=== PATIENT | male | born 1955 | race Caucasian/White ===

== ENCOUNTER 2020-03-19 12:26 | Inpatient (IN) ==
[2020-03-19] MEDS ORDERED: HYDROmorphone 2 MG/1 ML VIAL IV STA (12:55)
[2020-03-19] MEDS ORDERED: ONDANSETRON 4 MG/2 ML VIAL IV STA (12:55)
[2020-03-19 13:50] LABS: Basophils % 0.3 % (0.0-0.8); Eosinophils # 0.1 10*3/uL (0.0-0.87); Eosinophils % 1.3 % (0.00-10.9); Hematocrit 44.2 VOL% (42.0-52.0); Hemoglobin 14.9 GM/DL (14.0-18.0); Immature Granulocytes Absolute 0.09 #; Lymphocytes # 0.8 10*3/uL (1.4-4.0); Lymphocytes % 8.8 % (21.2-54.2); Mean Corpuscular HGB Conc 33.7 GM/DL (32-36); Mean Corpuscular Volume 94.4 FL (87-102); Mean Platelet Volume 10.7 FL (9.6-12.0); Monocytes % 6.3 % (1.7-12.7); Neutrophils % 82.3 % (38.7-73.9); Platelet Count 169 T/CUMM (130-400); Red Blood Count 4.68 MC/CUMM (3.8-5.5); Red Cell Distribution Width 13.3 % (9.3-17.3); White Blood Count 9.4 T/CUMM (4-12)
[2020-03-19 14:01] LABS: INR 2.2; Partial Thromboplastin Time 31.9 SECS (23.9-33.8)
[2020-03-19 14:08] LABS: PT Patient Result 22.4 SECS (9.8-11.9)
[2020-03-19 14:13] LABS: Calcium 9.8 MG/DL (8.5-10.1); Osmolality,Calculated 280.4 MOS/KG (273-304)
[2020-03-19] MEDS ORDERED: ACETAMINOPHEN 325 MG TABLET PO PRN (14:22)
[2020-03-19] MEDS ORDERED: ONDANSETRON 4 MG/2 ML VIAL IV PRN (14:22)
[2020-03-19] MEDS ORDERED: hydrALAZINE 20 MG/1 ML VIAL IV PRN (14:22)
[2020-03-19] MEDS ORDERED: PHYTONADIONE 5 MG/5 ML ORAL.SYR PO ONE (14:41)
[2020-03-19 15:06] LABS: Ferritin 297.1 ng/ml (26-388)
[2020-03-19] MEDS ORDERED: SODIUM CHLORIDE 0.9% 100 ML IV ONE (15:43)
[2020-03-19] MEDS: cefTRIAXone 1,000 MG in SYRINGE 1 EACH IV SCH (16:15)
[2020-03-19 18:09] LABS: Apearance,Urine CLOUDY (Clear); Bilirubin,Urine Negative (Negative); Blood, Urine Negative (Negative); Glucose,Urine (UA) Negative (Negative); Hyaline Casts,Urine 1 /LPF (0-3); Ketones,Urine Negative (Negative); Mucus,Urine Occasional /LPF (Occasional); Nitrite,Urine Negative (Negative); Protein,Urine Negative; RBC,Urine 4 /HPF (0-4); Urine Color Yellow (Yellow); Urine Specific Gravity 1.012 (1.001-1.035); Urine Urobilinogen < 2.0 EU/DL (0.2-1.0); WBC,Urine 14 /HPF (0-6)
[2020-03-19] MEDS: guaiFENesin/DM ER 600-30 MG TABLET PO SCH (22:10)
[2020-03-19] MEDS: AZITHROMYCIN INJ 500 MG in SODIUM CHLORIDE 0.9% 250 ML IV SCH (23:18)
[2020-03-20 05:49] LABS: Basophils % 0.3 % (0.0-0.8); Eosinophils # 0.2 10*3/uL (0.0-0.87); Eosinophils % 1.3 % (0.00-10.9); Hematocrit 46.4 VOL% (42.0-52.0); Hemoglobin 15.9 GM/DL (14.0-18.0); Immature Granulocytes % 0.7 %; Immature Granulocytes Absolute 0.08 #; Lymphocytes # 0.8 10*3/uL (1.4-4.0); Lymphocytes % 6.4 % (21.2-54.2); Mean Corpuscular HGB Conc 34.3 GM/DL (32-36); Mean Corpuscular Volume 93.9 FL (87-102); Monocytes % 8.5 % (1.7-12.7); Neutrophils % 82.8 % (38.7-73.9); Platelet Count 176 T/CUMM (130-400); Red Blood Count 4.94 MC/CUMM (3.8-5.5); Red Cell Distribution Width 13.3 % (9.3-17.3); White Blood Count 12.2 T/CUMM (4-12)
[2020-03-20 06:07] LABS: PT Patient Result 20.1 SECS (9.8-11.9); PT Patient Result 20.9 SECS (9.8-11.9); Partial Thromboplastin Time 34.2 SECS (23.9-33.8)
[2020-03-20 06:18] LABS: Calcium 9.1 MG/DL (8.5-10.1); Osmolality,Calculated 276.7 MOS/KG (273-304); Risk Ratio 3.54; Thyroid Stimulating Hormone 0.536 uIU/ml (0.358-3.74); VLDL CHOLESTEROL 17.4 MG/DL
[2020-03-20] MEDS: guaiFENesin/DM ER 600-30 MG TABLET PO SCH ×2 (09:09→21:12)
[2020-03-20] MEDS: DILTIAZEM CD 240 MG CAPSULE PO SCH (09:09)
[2020-03-20] MEDS: PANTOPRAZOLE 40 MG TABLET PO SCH (09:10)
[2020-03-20] MEDS: METOPROLOL SUCCINATE XL 100 MG TABLET PO SCH (09:10)
[2020-03-20] MEDS ORDERED: PHYTONADIONE 5 MG/5 ML ORAL.SYR PO ONE (09:19)
[2020-03-20] MEDS ORDERED: SODIUM CHLORIDE 0.9% 1,000 ML IV PRN (12:46)
[2020-03-20] MEDS ORDERED: ENOXAPARIN 120 MG/0.8 ML SYRINGE SUBCUT ONE (12:46)
[2020-03-20] MEDS: ALBUTEROL/IPRATROPIUM 3 ML NEB RESP TX SCH ×2 (13:14→19:26)
[2020-03-20] MEDS: cefTRIAXone 1,000 MG in SYRINGE 1 EACH IV SCH (17:19)
[2020-03-20] MEDS: AZITHROMYCIN INJ 500 MG in SODIUM CHLORIDE 0.9% 250 ML IV SCH (17:21)
[2020-03-20] MEDS ORDERED: TAMSULOSIN 0.4 MG CAPSULE PO SCH (21:00)
[2020-03-20] MEDS: FEXOFENADINE 180 MG TABLET PO SCH (21:12)
[2020-03-20] MEDS: TAMSULOSIN 0.4 MG CAPSULE PO SCH (21:12)
[2020-03-21] MEDS: ALBUTEROL/IPRATROPIUM 3 ML NEB RESP TX SCH ×4 (00:18→19:40)
[2020-03-21] MEDS ORDERED: BISACODYL 10 MG SUPP RECTAL PRN (00:26)
[2020-03-21 06:50] LABS: Basophils % 0.2 % (0.0-0.8); Eosinophils # 0.2 10*3/uL (0.0-0.87); Eosinophils % 1.4 % (0.00-10.9); Hematocrit 46.7 VOL% (42.0-52.0); Hemoglobin 15.6 GM/DL (14.0-18.0); Immature Granulocytes % 0.9 %; Immature Granulocytes Absolute 0.11 #; Lymphocytes % 7.6 % (21.2-54.2); Mean Corpuscular HGB Conc 33.4 GM/DL (32-36); Mean Corpuscular Volume 96.7 FL (87-102); Mean Platelet Volume 10.4 FL (9.6-12.0); Neutrophils % 80.9 % (38.7-73.9); Platelet Count 156 T/CUMM (130-400); Red Blood Count 4.83 MC/CUMM (3.8-5.5); Red Cell Distribution Width 13.6 % (9.3-17.3); White Blood Count 12.8 T/CUMM (4-12)
[2020-03-21 07:09] LABS: INR 1.2; Partial Thromboplastin Time 29.3 SECS (23.9-33.8)
[2020-03-21 07:10] LABS: Calcium 9.1 MG/DL (8.5-10.1); Osmolality,Calculated 280.4 MOS/KG (273-304)
[2020-03-21 07:21] LABS: PT Patient Result 12.7 SECS (9.8-11.9)
[2020-03-21] MEDS: DILTIAZEM CD 240 MG CAPSULE PO SCH (07:54)
[2020-03-21] MEDS: METOPROLOL SUCCINATE XL 100 MG TABLET PO SCH (07:54)
[2020-03-21] MEDS ORDERED: ceFAZolin 1,000 MG VIAL ONE (14:28)
[2020-03-21] MEDS ORDERED: LACTATED RINGERS 1,000 ML IV SCH (14:30)
[2020-03-21] MEDS ORDERED: BACITRACIN 50,000 UNIT VIAL ONE (14:37)
[2020-03-21] MEDS ORDERED: MORPHINE 4 MG/1 ML VIAL IV PRN (16:33)
[2020-03-21] MEDS ORDERED: BUPIVACAINE MPF 0.5% /EPI 30 ML VIAL ONE (16:38)
[2020-03-21] MEDS ORDERED: DEXAMETHASONE 4 MG/1 ML VIAL ONE ×2 (16:38→17:15)
[2020-03-21] MEDS ORDERED: propofoL 200 MG/20 ML VIAL IV ONE (17:14)
[2020-03-21] MEDS ORDERED: LIDOCAINE 2% 5 ML VIAL ONE (17:15)
[2020-03-21] MEDS ORDERED: ONDANSETRON 4 MG/2 ML VIAL ONE (17:15)
[2020-03-21] MEDS ORDERED: KETOROLAC 30 MG/1 ML VIAL ONE (17:15)
[2020-03-21] MEDS ORDERED: SEVOFLURANE 1 UNIT/15 MINUTE INH ONE (17:15)
[2020-03-21] MEDS ORDERED: GLYCOPYRROLATE 0.4 MG/2 ML VIAL ONE (17:15)
[2020-03-21] MEDS ORDERED: ACETAMINOPHEN 1,000 MG/100 ML VIAL IV ONE (17:15)
[2020-03-21] MEDS ORDERED: ALBUMIN 5% 12.5 GM/250 ML VIAL IV ONE (17:15)
[2020-03-21] MEDS ORDERED: TRANEXAMIC ACID 1,000 MG/10 ML VIAL ONE (17:15)
[2020-03-21] MEDS ORDERED: PHENYLEPHRINE DRIP 20 MG/250 ML PREMIX IV ONE (17:15)
[2020-03-21] MEDS ORDERED: SUCCINYLCHOLINE 200 MG/10 ML VIAL ONE (17:16)
[2020-03-21] MEDS ORDERED: NEOSTIGMINE 10 MG/10 ML VIAL ONE (17:16)
[2020-03-21] MEDS ORDERED: LACTATED RINGERS 1,000 ML IV ONE (17:16)
[2020-03-21] MEDS ORDERED: ROCURONIUM 100 MG/10 ML VIAL IV ONE (17:16)
[2020-03-21] MEDS ORDERED: PHENYLEPHRINE 1 MG/10 ML SYRINGE IV ONE (17:16)
[2020-03-21] MEDS ORDERED: MIDAZOLAM 2 MG/2 ML VIAL ONE (17:17)
[2020-03-21] MEDS ORDERED: fentaNYL 100 MCG/2 ML VIAL ONE (17:17)
[2020-03-21] MEDS ORDERED: FEXOFENADINE 180 MG TABLET PO SCH (17:30)
[2020-03-21] MEDS: AZITHROMYCIN 250 MG TABLET PO SCH (18:03)
[2020-03-21] MEDS: FEXOFENADINE 180 MG TABLET PO SCH (18:03)
[2020-03-21] MEDS: guaiFENesin/DM ER 600-30 MG TABLET PO SCH ×2 (18:03→21:16)
[2020-03-21] MEDS: PANTOPRAZOLE 40 MG TABLET PO SCH (18:03)
[2020-03-21] MEDS: TAMSULOSIN 0.4 MG CAPSULE PO SCH (18:03)
[2020-03-21] MEDS: cefTRIAXone 1,000 MG in SYRINGE 1 EACH IV SCH (18:05)
[2020-03-21] MEDS: ceFAZolin 1,000 MG in SYRINGE 1 EACH IV SCH (18:08)
[2020-03-21] MEDS ORDERED: WARFARIN 5 MG TABLET PO SCH (20:44)
[2020-03-22] MEDS: ceFAZolin 1,000 MG in SYRINGE 1 EACH IV SCH (01:09)
[2020-03-22] MEDS: ALBUTEROL/IPRATROPIUM 3 ML NEB RESP TX SCH ×4 (01:23→19:15)
[2020-03-22 05:07] LABS: Basophils % 0.1 % (0.0-0.8); Hematocrit 41.3 VOL% (42.0-52.0); Immature Granulocytes % 0.8 %; Immature Granulocytes Absolute 0.12 #; Lymphocytes # 0.5 10*3/uL (1.4-4.0); Lymphocytes % 3.3 % (21.2-54.2); Mean Corpuscular HGB Conc 33.9 GM/DL (32-36); Mean Corpuscular Volume 95.2 FL (87-102); Mean Platelet Volume 11.1 FL (9.6-12.0); Monocytes % 5.7 % (1.7-12.7); Neutrophils % 90.1 % (38.7-73.9); Platelet Count 143 T/CUMM (130-400); Red Blood Count 4.34 MC/CUMM (3.8-5.5); Red Cell Distribution Width 13.2 % (9.3-17.3); White Blood Count 14.5 T/CUMM (4-12)
[2020-03-22 05:17] LABS: INR 1.2; PT Patient Result 12.6 SECS (9.8-11.9)
[2020-03-22 05:24] LABS: Calcium 8.8 MG/DL (8.5-10.1)
[2020-03-22 05:41] LABS: Band Neutrophils 3 % (0-10); Lymphocytes 5 % (20-55); Segmented Neutrophils 88 % (50-85); Total Cells Counted 100
[2020-03-22 05:47] LABS: Microcytosis Slight; Ovalocytes Slight
[2020-03-22 05:48] LABS: Platelet Estimate Adequate
[2020-03-22] MEDS: guaiFENesin/DM ER 600-30 MG TABLET PO SCH ×2 (08:53→21:33)
[2020-03-22] MEDS: TAMSULOSIN 0.4 MG CAPSULE PO SCH ×2 (08:53→09:51)
[2020-03-22] MEDS: AZITHROMYCIN 250 MG TABLET PO SCH (08:53)
[2020-03-22] MEDS: METOPROLOL SUCCINATE XL 100 MG TABLET PO SCH (08:53)
[2020-03-22] MEDS: PANTOPRAZOLE 40 MG TABLET PO SCH (08:53)
[2020-03-22] MEDS: FEXOFENADINE 180 MG TABLET PO SCH (08:53)
[2020-03-22] MEDS: DILTIAZEM CD 240 MG CAPSULE PO SCH (08:54)
[2020-03-22] MEDS: ENOXAPARIN 40 MG/0.4 ML SYRINGE SUBCUT SCH (08:54)
[2020-03-22] MEDS: DUTASTERIDE 0.5 MG CAPSULE PO SCH (08:55)
[2020-03-22] MEDS ORDERED: DOCUSATE SODIUM 100 MG CAPSULE PO PRN (11:32)
[2020-03-22] MEDS ORDERED: MINERAL OIL 30 ML UDCUP PO ONE (13:30)
[2020-03-22] MEDS: DOCUSATE SODIUM 100 MG CAPSULE PO SCH ×2 (15:42→21:39)
[2020-03-22] MEDS: cefTRIAXone 1,000 MG in SYRINGE 1 EACH IV SCH (15:43)
[2020-03-22] MEDS: POLYETHYLENE GLYCOL POWDER 17 GM PACK PO SCH ×2 (15:43→21:40)
[2020-03-22] MEDS ORDERED: WARFARIN 2.5 MG TABLET PO SCH (18:00)
[2020-03-22] MEDS ORDERED: MAGNESIUM HYDROXIDE SUSP 30 ML UDCUP PO ONE ×2 (18:06→19:00)
[2020-03-22] MEDS ORDERED: BISACODYL 5 MG TABLET PO SCH (21:00)
[2020-03-22] MEDS ORDERED: TAMSULOSIN 0.4 MG CAPSULE PO SCH ×2 (22:00)
[2020-03-23] MEDS: ALBUTEROL/IPRATROPIUM 3 ML NEB RESP TX SCH ×3 (01:11→13:15)
[2020-03-23 05:49] LABS: INR 1.1; PT Patient Result 12.2 SECS (9.8-11.9)
[2020-03-23] MEDS: DILTIAZEM CD 240 MG CAPSULE PO SCH (08:06)
[2020-03-23] MEDS: AZITHROMYCIN 250 MG TABLET PO SCH (08:06)
[2020-03-23] MEDS: DUTASTERIDE 0.5 MG CAPSULE PO SCH (08:07)
[2020-03-23] MEDS: PANTOPRAZOLE 40 MG TABLET PO SCH (08:07)
[2020-03-23] MEDS: METOPROLOL SUCCINATE XL 100 MG TABLET PO SCH (08:07)
[2020-03-23] MEDS: DOCUSATE SODIUM 100 MG CAPSULE PO SCH (08:07)
[2020-03-23] MEDS: guaiFENesin/DM ER 600-30 MG TABLET PO SCH (08:07)
[2020-03-23] MEDS: FEXOFENADINE 180 MG TABLET PO SCH (08:07)
[2020-03-23] MEDS: ENOXAPARIN 40 MG/0.4 ML SYRINGE SUBCUT SCH (08:08)
[2020-03-23] MEDS: POLYETHYLENE GLYCOL POWDER 17 GM PACK PO SCH (08:08)
[2020-03-23] MEDS ORDERED: TAMSULOSIN 0.4 MG CAPSULE PO SCH (09:00)
[2020-03-23] MEDS ORDERED: ENOXAPARIN 100 MG/ML SYRINGE SUBCUT ONE (09:30)
[2020-03-23 11:37] VITALS: BP 136/82
[2020-03-23] MEDS ORDERED: ENOXAPARIN 150 MG/ML SYRINGE SUBCUT SCH (21:00)
== END 2020-03-23 13:40 | DRG 470 ==
LOC: EDUNIT# → EDBD → N.ED 12:26 → N.EDINP 14:22 → N.3E 17:10
PROVIDERS: ADMIT Hospitalist; ATTEND Hospitalist